=== PATIENT | female | born 1985 | race Caucasian/White ===

== ENCOUNTER 2017-07-15 08:58 | Emergency (ER) | payer MEDICAID ==
[2017-07-15 09:50] LABS: ADD MAN DIFF? NO
[2017-07-15 09:54] LABS: WHITE BLOOD COUNT 15.1 10^3/ul (4.8-10.8)
[2017-07-15 09:54] LABS: BASOPHILS % 0.3 % (0.0-2.0); EOSINOPHILS # 0.1 10^3/ul (0.0-0.5); EOSINOPHILS % 0.9 % (0.0-7.0); HEMATOCRIT 35.9 % (37.0-47.0); HEMOGLOBIN 12.2 g/dl (12.0-16.0); LYMPHOCYTES # 1.6 10^3/ul (0.8-2.9); LYMPHOCYTES % 10.3 % (15.0-51.0); MEAN CORPUSCULAR HEMOGLOBIN 30.5 pg (29.0-33.0); MEAN CORPUSCULAR VOLUME 89.8 fl (82.0-101.0); MEAN PLATELET VOLUME 10.7 fl (7.4-10.4); MONOCYTE # 1.1 10^3/ul (0.3-0.9); MONOCYTES % 7.1 % (0.0-11.0); NEUTROPHIL # 12.2 10^3/ul (1.6-7.5); NEUTROPHILS % 80.6 % (39.0-77.0); PLATELET COUNT 225 10^3/UL (140-415); RED CELL DISTRIBUTION WIDTH 13.1 % (11.5-14.5)
[2017-07-15] MEDS: KETOROLAC 15 MG INJ IV (10:05)
[2017-07-15] MEDS: DEXAMETHASONE 10 MG/ML 1 ML INJ IV (10:05)
[2017-07-15] MEDS: SOD CHLORIDE 0.9% 1,000 ML IV ×3 (10:06→12:11)
[2017-07-15 10:09] LABS: ANION GAP 15 (8-16); BLOOD UREA NITROGEN 11 mg/dl (7-20); CALCIUM 8.6 mg/dl (8.4-10.2); CARBON DIOXIDE 25 mmol/L (21-31); CHLORIDE 107 mmol/L (97-110); CREATININE 0.62 mg/dl (0.44-1.00); GLUCOSE 127 mg/dl (70-220); POTASSIUM 3.6 mmol/L (3.5-5.1); SODIUM 143 mmol/L (135-144)
[2017-07-15] MEDS ORDERED: IOHEXOL 300MG/ML 150 ML BTL (10:21)
[2017-07-15] MEDS ORDERED: SOD CHLORIDE 0.9% 100 ML (10:21)
[2017-07-15] MEDS: AMPICILLIN/SULB 3 GM/NS (PMX) 100 ML IVPB (10:46)
== END 2017-07-15 13:10 | disposition home or self-care (01) ==
LOC: E/R 08:58
DX: J03.90 Acute tonsillitis, unspecified (principal); E86.0 Dehydration; J45.909 Unspecified asthma, uncomplicated
CPT/HCPCS: 36415; 70491; 80048; 84703; 85025; 96374; 96375; 99285-25